=== PATIENT | male | born 1965 | race African-American/Black ===

== ENCOUNTER 2019-04-25 13:23 | Emergency (ER) | payer SELFPAY ==
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
--- NOTE | 2019-04-25 15:42 | XRay Report ---
CERVICAL SPINE RADIOGRAPHS / XR spine cervical 2-3V INDICATION: neck pain. COMPARISON: None. FINDINGS: AP, open-mouth and lateral cervical spine radiographs demonstrate grossly normal imaged de ns and symmetric lateral masses. Intact craniocervical articulation on the lateral view with visualiz ation up to C7-T1. Grossly intact alignment on the lateral view, though mild upper to mid cervical de xtrocurvature not excluded on the frontal projection. Moderate C3-C4 disc narrowing with C3 inferior endplate irregularity and sclerosis. Mild C6 degenerative spurring and slight superior endplate wedgi ng anteriorly. Slight C6-C7 disc narrowing also not excluded. Normal prevertebral soft tissues and ai rway. Clear visualized lung apices. IMPRESSION: Multilevel cervical spine degenerative changes, greatest at C3-C4 and of uncertain chroni city or etiology on this exam alone, as described. Please also correlate clinically, with prior relev ant imaging if available, or further assess with cross-sectional imaging, as warranted. Thank you for the opportunity to participate in this patient's care. Signer Name: Donald Arceo Signed: 04/25/2019 3:37 PM Workstation Name: [id number]
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
[2019-04-25 18:08] VITALS: BP 130/82
== END 2019-04-25 16:30 | disposition home or self-care (01) ==
LOC: ED 13:23
DX: S16.1XXA Strain of muscle, fascia and tendon at neck level, initial encounter (principal); Z79.899 Other long term (current) drug therapy; V87.7XXA Person injured in collision between other specified motor vehicles (traffic), initial encounter; Y93.89 Activity, other specified; Y92.488 Other paved roadways as the place of occurrence of the external cause; Y99.8 Other external cause status
CPT/HCPCS: 72040; 99283

== ENCOUNTER 2022-02-08 07:48 | Outpatient (CLI) | payer OTHER | END 2022-02-08 07:49 | disposition home or self-care (01) | LOC: PF 07:48 | PROVIDERS: ATTEND Internal Medicine | DX: Z02.71 Encounter for disability determination (principal); R06.02 Shortness of breath; J45.909 Unspecified asthma, uncomplicated | CPT/HCPCS: 94010 ==